=== PATIENT | female | born 1965 | race African-American/Black ===

== ENCOUNTER 2018-07-23 06:55 | Emergency (ER) | payer SELFPAY ==
[~2018-07-23] VITALS: Ht 162.6 cm; Wt 77.1 kg
--- NOTE | 2018-07-23 07:09 | Emergency Room Report ---
History of Present Illness General Chief Complaint: To Be Triaged Source: Patient Present Illness HPI 52-year-old female with a history of hypothyroidism presents with right-sided shoulder neck and clavicle area pain that started around 6 PM last night, reports it's a sharp pain that radiates all throughout that area of her shoulder and R neck and clavicle, she tried baby aspirin and then went to bed, and then around 4 AM this morning she woke up and was more severe, she felt like she was walking on clouds, and then she sucked on a line and that resolved her symptoms, and she feels much better now, but every time she touches her right clavicle she feels pain so she decided to go ahead and come and get checked out. She denies any relationship to by mouth intake, fevers, cough, shortness of breath, vomiting, nausea, diaphoresis, abdominal pain, hematuria, dysuria, skin rashes, falls, trauma, syncope, leg pain, leg swelling, numbness, tingling, weakness, slurred speech, dizziness, any other complaints at all. She also denies any tobacco, alcohol, drug use, family history of heart disease or blood clots or aortic disease. Allergies: Coded Allergies: No Known Allergies (Unverified , 07/23/18) Patient History Past Medical History: see triage record Reviewed Nursing Documentation: PMH: Agreed; PSxH: Agreed Review of Systems All Other Systems: negative except mentioned in HPI Physical Exam [id number] EP Interpretation: reviewed, normal General Appearance: no apparent distress, alert, non-toxic Head: normocephalic Eyes: bilateral eye normal inspection, bilateral eye PERRL, bilateral eye EOMI ENT: normal ENT inspection, hearing grossly normal, normal pharynx, no angioedema, normal voice, moist mucus membranes Neck: normal inspection, full range of motion, supple, thyroid normal, no meningismus, no bony tend, supple/symm/no masses Respiratory: normal inspection, chest non-tender, lungs clear, normal breath sounds, no rhonchi, no respiratory distress, no retraction, no accessory muscle use, no wheezing, speaking full sentences, chest symmetrical, palpation of chest normal Cardiovascular #1: normal inspection, normal peripheral pulses, regular rate, rhythm, no edema, no gallop, no JVD, no murmur, no rub Cardiovascular #2: 2+ radial (R), 2+ radial (L), 2+ dorsalis pedis (R), 2+ dorsalis pedis (L) Gastrointestinal: normal inspection, non tender, soft, no mass, no guarding, no rebound Rectal: deferred Genitourinary: normal inspection, no CVA tenderness Musculoskeletal: back normal, gait/station normal, normal range of motion, non- tender, no calf tenderness, decreased range of motion - R shoulder limited at > 90 flexion/abduction without significant pain, no erythema or warmth at shoulder , Chance's Sign negative, tender - Rsternoclavicular area, but no subcutaneous emphysema, skin changes, deformities, or any other abnormality Neurologic: alert, responsive, community dietitian III-XII nml as tested, motor strength/tone normal, sensory intact, speech normal Psychiatric: judgement/insight normal, memory normal, mood/affect normal, anxious Skin: normal color, no rash, warm/dry, normal turgor Lymphatic: no adenopathy Medical Decision Making Diagnostic Impression: Primary Impression: Shoulder pain, right Additional Impression: HTN (hypertension) ER Course Patient with likely muscular skeletal pain on the right shoulder, rotator cuff impingement syndrome, will be given reassurance, workup unremarkable, symptoms started over 12 hours ago, became more severe 3 hours ago, then resolved without sucking on a line, patient also very anxious, do not suspect acute coronary syndrome, pulmonary embolism, aortic dissection, or any other serious disease. Patient found to have hypertension, systolic between right arm and left arm was 20 point difference when tested immediately one after the other, therefore I ordered a chest CT angiogram to evaluate for aortic dissection, although it is not likely, I prefer sure keep a high index of suspicion to rule out this fatal disease before resuming muscular skeletal pain. Patient does report she has had multiple readings of high BP in the past few years, but hasn't followed up with her PMD to get BP meds initiated. Will dc with analgesics, since toradol helped here. Chest CTA negative for dissection. Will also give rx for amlodipine 5mg po qd x30d to allow patient to f/u with pmd for BP evaluation in the interim. EKG Diagnostic Results EKG Time: 07:02 EP Interpretation: no stemi, rate 79 Rate: normal Rhythm: NSR ST Segments: no acute changes ASA given to the pt in ED: Yes Rhythm Strip Diag. Results Rhythm Strip Time: 07:07 EP Interpretation: yes Rate: 77 Rhythm: NSR, no PVC's, no ectopy Chest X-Ray Diagnostic Results Chest X-Ray Diagnostic Results : Chest X-Ray Ordered: Yes # of Views/Limited/Complete: 1 View Indication: Chest Pain EP Interpretation: Yes Interpretation: no consolidation, no effusion, no pneumothorax, no acute cardiopulmonary disease Impression: No acute disease Electronically Signed by: Uma Smith MD CT/MRI/US Diagnostic Results CT/MRI/US Diagnostic Results : Imaging Test Ordered: cta chest/abd/pelvis Impression negative for aortic dissection Disposition: HOME, SELF-CARE Condition: Stable Scripts Amlodipine Besylate (Norvasc) 5 Mg Tablet 5 MG ORAL DAILY for 30 Days, #30 TAB Prov: UMA SMITH M.D 07/23/18 Cyclobenzaprine Hcl* (FLEXERIL*) 10 Mg Tablet 10 MG ORAL THREE TIMES A DAY, #10 TAB Prov: UMA SMITH M.D 07/23/18 Ibuprofen* (MOTRIN*) 600 Mg Tablet 600 MG ORAL Q8H PRN for For Pain, #10 TAB 0 Refills Prov: UMA SMITH M.D 07/23/18 UMA SMITH M.D Jul 23, 2018 07:09
[2018-07-23] MEDS ORDERED: LEVOTHYROXINE125 MCG ORAL (07:12)
[2018-07-23] MEDS ORDERED: Ketorolac 30mg Inj IV ONE (07:15)
[2018-07-23 07:23] VITALS: BP 179/80
[2018-07-23 07:29] LABS: BASOPHILS % (AUTO) 0.9 % (0.0-2.0); EOSINOPHILS % (AUTO) 0.6 % (0.0-3.0); HEMATOCRIT 28.2 % (37.0-47.0); HEMOGLOBIN 8.2 G/DL (12.0-16.0); LYMPHOCYTES % (AUTO) 8.8 % (20.0-45.0); MEAN CORPUSCULAR VOLUME 78 FL (80-99); NEUTROPHILS % (AUTO) 84.7 % (45.0-75.0); PLATELET COUNT 336 K/UL (150-450); RED BLOOD COUNT 3.63 M/UL (4.20-5.40); RED CELL DISTRIBUTION WIDTH 14.8 % (11.6-14.8); WHITE BLOOD COUNT 12.5 K/UL (4.8-10.8)
[2018-07-23 07:35] LABS: ANION GAP 8 mmol/L (5-15); BLOOD UREA NITROGEN 9 mg/dL (7-18); CALCIUM 8.3 MG/DL (8.5-10.1); CARBON DIOXIDE 28 MMOL/L (21-32); CHLORIDE 99 MMOL/L (98-107); CREATININE 0.7 MG/DL (0.55-1.30); POTASSIUM 3.3 MMOL/L (3.5-5.1); SODIUM 135 MMOL/L (136-145)
[2018-07-23 07:40] LABS: ALANINE AMINOTRANSFERASE 28 U/L (12-78); ALBUMIN 3.8 G/DL (3.4-5.0); ALBUMIN/GLOBULIN RATIO 0.8 (1.0-2.7); ALKALINE PHOSPHATASE 56 U/L (46-116); ASPARTATE AMINO TRANSFERASE 30 U/L (15-37); BILIRUBIN,TOTAL 0.1 MG/DL (0.2-1.0)
[2018-07-23] MEDS ORDERED: Isovue-370 150ml vial INJ PRN ×2 (08:30→08:45)
[2018-07-23] MEDS ORDERED: Isovue-300 100ml vial INJ PRN (08:30)
[2018-07-23 08:59] VITALS: BP 156/78
[2018-07-23] MEDS ORDERED: NORVASC5 MG ORAL (09:36)
[2018-07-23] MEDS ORDERED: CYCLOBENZAPRINE10 MG ORAL (09:36)
[2018-07-23] MEDS ORDERED: IBUPROFEN600 MG ORAL (09:36)
--- NOTE | 2018-07-23 10:11 | Diagnostic Imaging Report ---
CLINICAL INDICATION:Right-sided shoulder, neck, clavicular area pain, sharp and radiating. Abdominal pain TECHNIQUE: No oral contrast. Arterial phase spiral acquisitions obtained through the chest, abdomen, and pelvis. Multiplanar and 3-D reconstructions were generated. Total dose length product 1332 mGycm. CTDIvol(s) 8, 24, 21 mGy. Radiation dose was minimized using automated exposure control COMPARISON: FINDINGS Chest: No evidence of thoracic aortic aneurysm or dissection demonstrated. Normal branching anatomy of the great neck vessels. Exam is not protocoled for exclusion of pulmonary embolus, but the pulmonary arteries are nonetheless fairly well opacified, and no definite acute pulmonary emboli are demonstrated. The lungs are clear. No infiltrates, effusions, congestion, masses, or nodules. The heart size is normal. No pericardial effusion. No mediastinal or hilar mass or adenopathy. No axillary or chest wall mass or adenopathy. The bones are unremarkable except for minimal degenerative spondylosis change. Unremarkable esophagus Abdomen pelvis: No abdominal aortic aneurysm or dissection. Normal caliber celiac axis, superior mesenteric artery, bilateral renal arteries, inferior mesenteric artery, and proximal branches. Normal caliber iliac arteries bilaterally. The liver, gallbladder, bile ducts, pancreas, spleen, adrenals are unremarkable. There is mild right and trace left hydronephrosis and hydroureter. No renal parenchymal abnormality demonstrated. The uterus is markedly enlarged, measuring 14 x 9.5 x 6.5 cm. It is heterogeneous with multiple ill-defined masses. The ovaries are unremarkable. The bladder is unremarkable. No pelvic adenopathy demonstrated. The appendix is normal. No evidence of diverticulosis or diverticulitis. There is trace free pelvic fluid. No small bowel distention. The stomach and duodenum are unremarkable. IMPRESSION: Negative for evidence of thoracic or abdominal aortic aneurysm or dissection or any other acute thoracic, abdominal, or pelvic pathology Enlarged fibroid uterus Trace free pelvic fluid, presumably physiologic The CT scanner at [facility] is accredited by the [employer] and the scans are performed using protocols designed to limit radiation exposure to as low as reasonably achievable to attain images of sufficient resolution adequate for diagnostic evaluation.
[2018-07-23 11:02] VITALS: BP 150/69
--- NOTE | 2018-07-23 12:18 | Diagnostic Imaging Report ---
Indication: Chest pain Technique: One view of the chest Comparison: none Findings: Lungs and pleural spaces are clear. Heart size is normal. The right hemidiaphragm is elevated. Impression: No acute process
--- NOTE | 2018-07-25 14:14 | Cardiology Report ---
APPROVED REPORT EKG Measurement Heart [id number] Normal sinus rhythm T wave abnormality, consider inferior ischemia Abnormal ECG
== END 2018-07-23 11:05 | disposition home or self-care (01) ==
LOC: EMR 07:20
DX: M25.511 Pain in right shoulder (principal); I10 Essential (primary) hypertension; R07.9 Chest pain, unspecified
CPT/HCPCS: 36415; 71045; 71275; 74174; 80053; 84484; 85025; 93005; 96374; 99284; J1885; Q9967